=== PATIENT | male | born 1935 | race Caucasian/White ===

== ENCOUNTER 2019-05-31 10:11 | Emergency (ER) | payer SELFPAY ==
[~2019-05-31] VITALS: Ht 180.3 cm; Wt 67.6 kg
[2019-05-31 10:22] VITALS: BP 147/81
--- NOTE | 2019-05-31 10:59 | NUR ---
Pt's leg bag changed to fresh one. Pt instructed on how to change leg bag to large whelan bag. Pt provided fresh large whelan bag. Educated pt at length about proper care of whelan and importance of cleanliness. Pt verbalizes understanding and can demonstrate changing of bag as well as emptying of bag.
== END 2019-05-31 11:37 | disposition home or self-care (01) ==
LOC: ED 10:45
DX: N40.0 Benign prostatic hyperplasia without lower urinary tract symptoms (principal); R33.9 Retention of urine, unspecified
CPT/HCPCS: 99281

== ENCOUNTER 2019-10-13 11:20 | Emergency (ER) | payer SELFPAY ==
[~2019-10-13] VITALS: Ht 182.9 cm; Wt 67.0 kg
[2019-10-13 11:24] VITALS: BP 128/64
--- NOTE | 2019-10-13 11:45 | NUR ---
PT PRESENTING FOR LEG BAG LEAKAGE. NO PAIN OR OTHER SYMPTOMS REPORTED. MD TO BEDSIDE FOR ASSESSMENT. PLAN TO CHANGE LEG BAG AND DC.
--- NOTE | 2019-10-13 12:11 | NUR ---
LEG BAG CHANGED, SECURMENT DEVICE APPLIED. PT EDUCATED ON SYSTEM. AWAITING PAPERS AT THIS TIME
== END 2019-10-13 13:00 | disposition home or self-care (01) ==
LOC: ED 12:32
DX: T85.638A Leakage of other specified internal prosthetic devices, implants and grafts, initial encounter (principal); Y92.89 Other specified places as the place of occurrence of the external cause
CPT/HCPCS: 99281

== ENCOUNTER 2019-10-14 09:46 | Emergency (ER) | payer OTHER ==
[~2019-10-14] VITALS: Ht 180.3 cm; Wt 67.2 kg
[2019-10-14 09:48] VITALS: BP 130/65
--- NOTE | 2019-10-14 10:45 | NUR ---
NEW CATHETER STABILIZATION DEVICE APPLIED TO INNER THIGH. PT GIVEN NEW STRAPS FOR HIS LEG BAG, AND EDUCATED ON APPLICATION AND GENERAL CATHETER CARE. PT VERBALIZES UNDERSTANDING. ALL QUESTIONS ADDRESSED. CALL LIGHT IN REACH.
== END 2019-10-14 11:35 | disposition home or self-care (01) ==
LOC: ED 10:30
DX: T83.098A Other mechanical complication of other urinary catheter, initial encounter (principal); Y92.89 Other specified places as the place of occurrence of the external cause
CPT/HCPCS: 99281